=== PATIENT | female | born 1990 | race Caucasian/White ===

== ENCOUNTER → 2021-10-28 | Outpatient (CLI) | payer OTHER ==
[~2021-10-28] MED LIST: BENTYL 20MG TAB20 MG PO; CARAFATE1 GM PO; COLACE100 MG PO; IBUPROFEN600 MG PO; LODINE CAP 300300 MG PO; NORCO 5-325 TA1 EACH PO; NORFLEX 100 MG100 MG PO; TYLENOL 500 MG500 MG PO; ZOFRAN4 MG PO
== END ==
LOC: EXRD 09:51
DX: R10.13 Epigastric pain (principal)
CPT/HCPCS: 76705